=== PATIENT | female | born 1995 | race Caucasian/White ===

== ENCOUNTER 2020-08-19 02:49 | Emergency (ER) | payer OTHER, SELFPAY ==
[2020-08-19 02:50] VITALS: BP 128/82; PULSE 88; RESP 16; TEMP 36.9; O2SAT 100; BMI 23.0
--- NOTE | 2020-08-19 02:58 | EKG12_ITS ---
Test Reason : PALPITATIONS Blood Pressure : / mmHG Vent. Rate : 071 BPM Atrial Rate : 071 BPM P-R Int : 156 ms QRS Dur : 094 ms QT Int : 392 ms P-R-T Axes : 049 065 037 degrees QTc Int : 425 ms Normal sinus rhythm with sinus arrhythmia Normal ECG Confirmed by DEANA COBB, MARIA DOLORES ([id number]), editor sound ANIKA ROSS ([id number]) on 08/20/2020 2:27:05 PM Referred By: KOTA Confirmed By:MARIA DOLORES LEBLANC MD
--- NOTE | 2020-08-19 02:58 | ED.VIS.GEN ---
History of Present Illness Chief Complaint: Palpitations Informant: Patient Onset: Today Narrative: Patient presents by private vehicle for evaluation of palpitations awaking her at 1:30 AM this morning. States racing heart and lightheaded symptoms. She reports that EMS was contacted who came to evaluate her with vitals no EKG was performed. She had symptoms at that time. She states they left. She was concerned therefore came to the ED. Her mother brought her here, she states her symptoms resolved on the way to the emergency department. Currently asymptomatic. Denies previous similar symptoms. States she did have a LEEP procedure yesterday was given Valium for the procedure. She states he is feeling anxious from the results of the procedure. 5 PM yesterday took a gummy CBD for the first time due to this. Drinks coffee 1 cup a day in the mornings. No energy drinks. Denies any recent vomiting or diarrhea. Denies any past medical history. Prior similar symptoms: No Past Medical History - Allergies and Home Meds Allergies/Adverse Reactions: Allergies Penicillins Allergy (Verified 08/19/20 02:58) [facility] Primary Care Physician: Lizbet Barnett DO [Primary Care Provider] - Past Medical History: None Smoking Status: Never smoker Review of Systems General: Denies: Chills, Fever, Sweats Eyes: Denies: Visual changes - bilaterally, Diplopia ENT: Denies: Rhinorrhea, Sore throat Cardiovascular: Reports: Palpitations, Heart racing. Denies: Chest pain Respiratory: Denies: Dyspnea, Cough, Dyspnea on exertion Gastrointestinal: Denies: Abdominal pain, Nausea, Vomiting, Diarrhea, Melena, Hematochezia Genitourinary: Denies: Dysuria, Hematuria, Frequency Musculoskeletal: Denies: Back pain, Extremity Pain Skin: Denies: Rash, Wounds Neurological: Denies: Headache, Weakness, Numbness Physical Exam Vital Signs/Narrative: Vital Signs Temp Pulse Resp BP Pulse Ox 08/19/20 02:50 98.4 F 88 16 128/82 H 100 Inital Vital Signs reviewed: Yes General: Well nourished, Well developed, No Acute Distress Head: Normocephalic, Atraumatic Eyes: Perrl, EOMI ENT: Moist mucous membranes, No rhinorrhea Neck: Supple, Nontender Cardiovascular: Regular rate, Regular rhythm, No murmurs Respiratory: No distress, CTA bilaterally, Chest nontender Abdomen: Soft, Nontender, Nondistended, Normal bowel sounds Back: Nontender, Normal Inspection Extremities: Nontender, No edema Skin: Normal color, No rash Neurological: Alert, Oriented x3, Cranial nerves II-XII grossly intact, Normal Strength, Normal Sensation Psychological: Normal affect, Normal Mood Diagnostic/Tx/Re-eval - EKG Initial EKG Interpretation: Sinus Rhythm - Sinus rate of 71, no ST changes isolated T wave inversion leads III nonspecific. QTc 425. - Medical Decision Making Patient vital signs stable currently asymptomatic. EKG essentially normal. Normal QTC. She is monitored on the monitor remained stable. Discussed first-time use of CBD, unclear on potential side effects that could cause her symptoms. This time discussed with patient refrain from this, she will monitor symptoms cut her caffeine as needed. She will follow-up with her PCP for further testing as an outpatient. Clinically no signs of anemia. No recent vomiting or diarrhea for concern of any electrolyte abnormalities. Strict signs and symptom discussed to return, otherwise follow-up as an outpatient. All questions were answered. ED Disposition - Plan for ED Patient: Disposition: Home or Assisted Living Diagnosis: Palpitations Instructions: ED Palpitations Referrals: Lizbet Barnett DO [Primary Care Provider] - 5-7 Days
[2020-08-19 03:45] VITALS: BP 108/64; PULSE 76; RESP 16; O2SAT 100
== END 2020-08-19 03:45 | disposition home or self-care (01) ==
PROVIDERS: Emergency Provider Emergency Medicine; PCP Obstetrics & Gynecology
DX: R00.2 Palpitations (principal)
CPT/HCPCS: 93005; 99283